=== PATIENT | female | born 1975 | race Caucasian/White ===

== ENCOUNTER 2024-10-15 09:49 | Emergency (ER) | payer BC, SELFPAY ==
[2024-10-15 10:35] VITALS: BP 151/86; PULSE 109; RESP 18; TEMP 37.4; O2SAT 98; BMI 33.3
--- NOTE | 2024-10-15 11:03 | CRLHL7_ITS ---
For Patients: As a result of the Century Cures Act, medical imaging exams and procedure reports are released immediately into your electronic medical record. You may view this report before your referring provider. If you have questions, please contact your health care provider. Indication: Fall. Technique: Sacrum and coccyx 3 view. Comparison: None. Findings: Bones: Alignment is normal. No definite acute fracture. Evaluation of the sacrum on the anteroposterior views is limited by overlying bowel gas. Joint spaces: Joint spaces are preserved. No degenerative changes. Soft tissues: Unremarkable. Impression: No evident acute fracture or dislocation. Dictated by Marbin Cancino MD @ 10/15/2024 12:08:56 PM (Electronically Signed)
--- NOTE | 2024-10-15 11:04 | ED_ITS ---
HPI - Fall General Chief Complaint: Fall/Minor Trauma Stated Complaint: fall on ice/tailbone, back, L arm/leg Time Seen by Provider: 10/15/24 10:51 History of Present Illness HPI Narrative: This 49-year-old female comes in for evaluation after a fall it occurred just prior to arrival. She slipped on ice and fell onto her bottom. She states that she is unable to sit or put any weight on her tailbone. She was able to get up and ambulate and reports a few other bumps and bruises. She did not have any loss of consciousness and did not hit her head. Her primary complaint is at her tailbone and sacrum area. Related Data Home Medications ?Medication ?Instructions ?Recorded ?Confirmed estradiol-dienogest 3 mg/2 mg-2 1 tab PO DAILY 10/15/24 10/15/24 mg/2 mg-3 mg/1 mg tablet (Natazia) Previous Rx's ?Medication ?Instructions ?Recorded albuterol sulfate 90 mcg/actuation 2 puff inhalation Q4-6H PRN 07/03/24 aerosol inhaler shortness of breath or wheezing #1 packet cyclobenzaprine 10 mg tablet 10 mg PO TID #15 tabs 10/15/24 ketorolac 10 mg tablet 10 mg PO Q8H 5 days #15 tabs 10/15/24 Allergies Allergy/AdvReac Type Severity Reaction Status Date / Time hydromorphone Allergy Mild itchy Verified 10/15/24 10:42 Review of Systems Status of ROS: Reports: 10 or more systems reviewed and unremarkable except as noted in History and below Narrative: Constitutional: No fevers, no weight gain or loss. Eyes: No discharge. No vision changes. HENT: No congestion, no sore throat, no ear pain. Cardiovascular: No chest pain, no palpitations. Respiratory: No shortness of breath, no wheezes, no cough. Gastrointestinal: No abdominal pain, no vomiting, no diarrhea. Genitourinary: No dysuria, no hematuria. Musculoskeletal: Low back pain in the area of the coccyx and sacrum. Skin: No rashes, no pruritis. Neurological: No dizziness, weakness, sensory change, speech change. Endo/Heme/Allergies: No bruising or bleeding. No polydipsia. Pysch: no suicidality, no anxiety, no insomnia. All other systems reviewed and are negative. [facility] Medical History (Updated 10/15/24 @ 12:26 by Khalif Hills MD) Viral bronchitis ?J20.8 - Acute bronchitis due to other specified organisms (ICD-10) Social History Smoking Status: Unknown if ever smoked Exam Narrative: Exam Narrative: Constitutional: Well-developed, well-nourished, no acute distress. HEENT: Normocephalic, atraumatic. Neck: Normal range of motion. Nontender. Supple. Heart: Intact distal pulses. Lungs: No chest discomfort. No wheezes, rhonchi, or rales. Abdomen: Nontender. Back: Normal range of motion. No midline tenderness through the back. Tenderness diffusely in the sacrum and coccyx area. No sign of swelling or ecchymosis. Extremities: Normal range of motion. No injury. Skin: Intact. No rash. Warm. No erythema or pallor. Neurologic: No altered sensation. No weakness. Alert and oriented. Psychiatric: No suicidality. No anxiety or depression. No insomnia. Nursing notes and vitals signs are reviewed. Const: Vital Signs, click to edit/add: Vital Signs - 24 hr 10/15/24 10:35 10/15/24 12:14 Temperature 99.4 F Pulse Rate [Pulse Oximeter] 109 H 92 Respiratory Rate 18 16 Blood Pressure [Ri ght Upper Arm] 151/86 H 141/80 H Pulse Oximetry 98 100 Oxygen Delivery Me thod Room Air Room Air Course Vital Signs Vital signs: Initial Vital Signs Temperature 99.4 F 10/15/24 10:35 Temperature Source Temporal Artery Scan 10/15/24 10:35 Pulse Rate 109 H 10/15/24 10:35 Respiratory Rate 18 10/15/24 10:35 Blood Pressure 151/86 H 10/15/24 10:35 Blood Pressure Mean 107 H 10/15/24 10:35 Blood Pressure Position Sitting 10/15/24 10:35 Pulse Oximetry 98 10/15/24 10:35 Oxygen Delivery Method Room Air 10/15/24 10:35 Vital Signs Temperature 99.4 F 10/15/24 10:35 Pulse Rate 109 H 10/15/24 10:35 Respiratory Rate 18 10/15/24 10:35 Blood Pressure 151/86 H 10/15/24 10:35 Pulse Oximetry 98 10/15/24 10:35 Oxygen Delivery Method Room Air 10/15/24 10:35 Temperature 99.4 F 10/15/24 10:35 Pulse Rate 92 10/15/24 12:14 Respiratory Rate 16 10/15/24 12:14 Blood Pressure 141/80 H 10/15/24 12:14 Pulse Oximetry 100 10/15/24 12:14 Oxygen Delivery Method Room Air 10/15/24 12:14 MDM - Fall MDM Narrative Medical decision making narrative: This patient comes in for evaluation of pain in her sacrum and tailbone after a fall that occurred just prior to arrival. She is able to get up and ambulate. She did not hit her head or have other significant injury. X-ray imaging of the sacrum and coccyx is negative according to Radiology report and by my review. The patient is okay to be discharged home. She did received prescriptions for Toradol and Flexeril. Imaging Data XR Sacrum/Coccyx: Radiologist's impression: No evident acute fracture or dislocation. Discharge Plan Discharge Clinical Impression: Tailbone injury Patient Disposition: Home, Self-Care Condition: Stable Additional Instructions: Take medication as needed and directed. Increase activity as tolerated. Follow up with MD return if worsening. Prescriptions: New cyclobenzaprine 10 mg tablet 10 mg PO TID Qty: 15 0RF ketorolac 10 mg tablet 10 mg PO Q8H 5 Days Qty: 15 0RF No Action albuterol sulfate 90 mcg/actuation HFA aerosol inhaler 2 puff inhalation Q4-6H PRN (Reason: shortness of breath or wheezing) Qty: 1 0RF Natazia 3 mg/2 mg-2 mg/ 2 mg-3 mg/1 mg tablet 1 tab PO DAILY Follow Up/Referrals: Provider,Not a Local [Primary Care Provider] - Stand Alone Forms: [employer] Info Instructions
[2024-10-15 12:14] VITALS: BP 141/80; PULSE 92; RESP 16; O2SAT 100
== END 2024-10-15 12:33 | disposition home or self-care (01) ==
PROVIDERS: Emergency Provider Emergency Medicine Emergency Medical Services
DX: S39.92XA Unspecified injury of lower back, initial encounter (principal); W00.0XXA Fall on same level due to ice and snow, initial encounter
CPT/HCPCS: 72220; 99283; 99284

== ENCOUNTER 2025-07-15 20:33 | Emergency (ER) | payer BC, SELFPAY ==
--- OUTSIDE RECORDS SUMMARY | 2025-07-15 20:35 | XMS_ITS | Clinical Summary ---
Author Organization [facility] Address [address] [place] [id number] Care Team Providers Care Childcare Director Name Role Phone Keesha Ponce MD Primary Care Prov ider Allergies Active Allergy Reactions Criticality Noted Date Comments Hydromorphone 11/03/2010 Itching unsure if could be zofran also had a same time Medications acetaminophen 325 mg tabletIndicati ons:Postoperat soni pain Take 1-2 Tablets (325-650 mg) by mouth every 4 hours if needed for Pain. Max acetaminophen dose: 4000mg in 24 hrs. 5 Active ibuprofen 200 mg tabletIndicati ons:Postoperat soni pain Take 1-3 Tablets (200-600 mg) by mouth every 6 hours if needed for Pain. 5 Active docusate (Colace) 100 mg capsuleIndicat ions:Postopera tive pain Take 1 Capsule (100 mg) by mouth once daily. 5 Active oxyCODONE 5 mg immediate release tabletIndicati ons:Postoperat soni pain Take 1 Tablet (5 mg) by mouth every 4 hours if needed for Pain. 12 Tablet 5 Active oxyCODONE 5 mg immediate release tabletIndicati ons:Postoperat soni pain Take 1 Tablet (5 mg) by mouth every 4 hours if needed for Pain. 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/17/2006 Immunizations Immunization Administration Dates Next Due COVID-19 vaccine (Moderna 100mcg/0.5mL) PF, MDV 03/05/2021,02/05/2021 Influenza A (H1N1), Inactiva braeden (Age >=3 Years) 08/21/2009 Influenza Virus, Unspecified 07/25/2018 Influenza, IIV3 (Age >=3 years) 07/27/20 16,07/13/2012,07/05/2011,2003 Influenza, IIV4 07/24/2019, 7,07/23/2015,2012 Influenza, IIV4 (=>6mos) MDV 07/15/2020,07/24/20 19,07/23/2015 Influenza,CCIIV4 PRESERV FREE 07/25/2018 Td (Age >=7 Years) 09/29/2005 Td, Preservative Free (age > = 7 Years) 09/29/2005 Tdap 11/30/2010 Family History Medical History Relation Name Comments Hypertension Father Cancer-colon Maternal Grandfather Other Maternal Grandmother kidney issues was smoker lots of issues not sure details Good Health Mother Unknown Paternal Grandfather Other Paternal Grandmother ol d age 104 Good Health Sister 1 Good Health Sister 2 Cancer-breast No Family History Relation Name Status Comments Father Alive Maternal Grandfather Maternal Grandmother Mother Alive Paternal Grandfather Paternal Grandmother Sister 1 Alive Sister 2 Alive Social History Tobacco Use Types Packs/Day Years Used Date Smoking Tobacco: Never Smokeless Tobacco: Never Tobacco Cessation:Counseling Given: Yes Alcohol Use Standard Drinks/Week Comments Yes 0 (1 standard drink = 0.6 oz pur e alcohol) ocassionally PHQ-2 Answer Date Recorded PHQ-2 TOTAL SCORE 4 11/06/2024 Social Connections Answer Date Recorded Do you often feel lonely or isolated from those around you? 0 10/03/2024 Financial Resource Strain Answer Date R ecorded Difficulty of Paying Living Expenses 3 10/03/2024 Difficulty of Paying Living Expenses Not on file 10/03/2024 Food Insecurity Answer Date Recorded Do you worry your food will run out before you are able to buy more? 1 10/03/2024 Transportation Needs Answer Date Record ed Does lack of transportation keep you from medica l appointments? 1 10/03/2024 Does lack of transportation keep you from work, meetings or getting things that you need? 1 10/03/2024 Housing Stability Answer Date Recorded What is your housing situation today? 1 10/03/2024 Utilities Answer Date Recorded Do you have trouble paying f or utilities (for example, heat, electricity, water, phone)? 1 10/03/2024 Comments No Sex and Gender Information Value Date Recorded Sex Assigned at Not on file Legal Sex Female 5:26 AM [employer]RNAMENTAL MET[employer] Gender Identity Not on file Sexual Orientation Not on file Obstetrics History Para Term AB IAB SAB Ectopic Multiple Livin g Live Births 2 2 2 2 2 Date Outcome GA Total Labor Labor//3rd Weight Sex Type Anes PTL Trena A1 A5 Name Clin 2000 Term Vag Living 2003 Term Vag Living Last Filed Vital Signs Vital Sign Reading Time Taken Comments Blood Pressure 128/90 03/19/2025 11:30 AM CDT Pulse 80 03/19/2025 11:30 AM CDT Temperature 36.3 C (97.3 F) 01/28/2025 11:05 AM CDT Respiratory Rate 16 01/28/2025 12:00 PM CDT Oxygen Saturation 98% 01/28/2025 12:00 PM CDT Inhaled Oxygen Concentration - - Weight 87.5 kg (193 lb) 03/19/2025 11:30 AM CDT Height 165.1 cm (5' 5) 01/28/2025 6:05 AM CDT Body Mass Index 32.12 01/28/2025 6:05 AM CDT Plan of Treatment Health Maintenance Due Date Last Done Comments HIV for age 15-65 01/06/1991 Hepatitis C screening for age 18-79 01/06/1994 Hepatitis B series for 19+ (1 of 3 - 19+ 3-dose series) 01/06/1995 Tetanus booster 11/30/2020 11/30/2010, 09/16, 09/29/2005 Colonoscopy through age 75 11/21/2022 11/21/2012 COVID-19 vaccine series ( - 2024- season) 2025 03/05/2021, 02/05/2021 Influenza Vaccine (#1) 2025 0, 07/24/2019, 07/24/2019, Additional history exists Depression screening for age 12+ 11/12/2025 11/12/2024, 11/10/2024, 11/10/2024, Additional history exists BMI (ht and wt on same day) for age 18+ 01/16/2026 01/16/2025, 11/06/2024, 03/17/2021, Additional history exists Mammogram for age 45-75 03/28/2026 03/28/20 25, 02/28/2024, 02/23/2021 Lipids for age 45-75 01/16/2030 01/16/2025, 11/28/19 07 RSV vaccine for adults or (1 - 1-dose 75+ series) 01/06/2051 Pap test for age 21-65 Discontinued , 09/09/2015, 11/30/2010, Additional history exists Pneumococcal series for age 6-49 Aged Out No longer eligible based on patient's age to complete this topic Procedures Procedure Name Priority Date/Time Associated Diagnosis Comments XR MAMMO FIORELLA BILAT SCREEN Routine 03/28/2025 7:26 AM CDT Encounter for screening mammogram for malignant neoplasm of breast LIPID PANEL W REFLEX MEASURED LDL Routine 01/16/2025 7:47 AM CDT Screening for lipoid disorders INTEGRATION MANAGER THIN PREP PAP SCREEN IMAGED Today 03/20/2021 11:16 AM CDT from Last 3 Months or Most Recently Relevant to Health Maintenance Results * XR MAMMO FIORELLA BILAT SCREEN (03/28/2025 7:26 AM CDT) Anatomical Region Laterality Modality BREASTS, Breast Left, Breast Right Bilateral Mammography Impressions 03/28/2025 1:48 PM CDT There is no radiographic evidence for malignancy. Recommend annual mammograms. MAMMOGRAM ASSESSMENT: ACR 1 Negative PATIENTS: You will also receive a letter with your examination results in an easy to read format. If you have questions about your results, please contact your referring provider. Narrative 03/28/2025 1:48 PM CDT For Patients: As a result of the Century Cures Act, medical imaging exams and procedure reports are released immediately into your electronic medical record. You may view this report before your referring provider. If you have questions, please contact your health care provider. XR MAMMO FIORELLA BILAT SCREEN [[id number]] CLINICAL HISTORY: This is an asymptomatic 50 y.o. patient. INDICATION FOR EXAM: Mammogram Screening. TECHNIQUE: CC and MLO views were obtained. This study was evaluated with the assistance of Computer-Aided Detection. Breast Tomosynthesis was used in interpretation. COMPARISON FILM: Yes 02/28/24 [facility] 02/23/21 [facility] FINDINGS: The breasts are heterogeneously dense, which may obscure small masses. There are no dominant masses, suspicious micro calcifications or areas of architectural distortion. us Keesha Ponce MD MAMMO Fi nal Result * (ABNORMAL) LIPID PANEL W REFLEX MEASURED LDL (01/16/2025 7:47 AM CDT) CHOLESTEROL, TOTAL 189 <200 mg/dL [facility] HDL CHOLESTEROL 52 > OR = 50 mg/dL [facility] TRIGLYCERIDES 127 <150 mg/dL [facility] LDL-CHOLESTEROL 113(H) mg/dL (calc) [facility] Comment: Reference range: <100 Desirable range <100 mg/dL for primary prevention; <70 mg/dL for patients with CHD or diabetic patients with > or = 2 CHD risk factors. LDL-C is now calculated using the Christiano-Jacky calculation, which is a validated novel method providing better accuracy than the Friedewald equation in the estimation of LDL-C. Christiano BONILLA et al. AVE. 2013;310(19): 4609-1263 (http://education.[employer].IRL Gaming/faq/XAV218) CHOL/HDLC RATIO 3.6 <5.0 (calc) [facility] NON HDL CHOLESTEROL 137(H) <130 mg/dL (calc) [facility] Comment: For patients with diabetes plus 1 major ASCVD risk factor, treating to a non-HDL-C goal of <100 mg/dL (LDL-C of <70 mg/dL) is considered a therapeutic option. Blood BLOOD SPECIMEN / Unknown 01/16/2025 7:47 AM CDT 01/16/2025 7:47 AM CDT Keesha Ponce MD CHEMISTRY Fi nal Result [employer] [facility] [address] [place] [address], [facility] [address] [place] [address] * INTEGRATION MANAGER THIN PREP PAP SCREEN IMAGED (03/20/2021 11:16 AM CDT) Case Report Gynecologic Cytology Report Case: [id number] Authorizing Provider: Bridger Suarez MD Collected: 03/20/2021 1116 Ordering Location: [facility] Received: 03/20/2021 1327 First Screen: Baccam, Minie Rescreen: Valery Driver Specimen: INTEGRATION MANAGER ThinPrep Vial Screening, Cervix, pap smear 04/02/2021 12:22 PM CDT [facility] INTERPRETATION/ RESULT NEGATIVE FOR INTRAEPITHELIAL LESION OR MALIGNANCY (NIL) (none) 04/02/2021 12:22 PM CDT [facility] at 1222 CDT SPECIMEN ADEQUACY Satisfactory for evaluation Endocervical component present 04/02/2021 12:22 PM CDT [facility] HPV REQUEST HPV if ASCUS 04/02/2021 12:22 PM CDT [facility] Last Pap Date 09/09/15 04/02/2021 12:22 PM CDT [facility] Last Pap Result NIL 12:22 PM CDT [facility] Mineral Bx Done Today No 04/02/2021 12:22 PM CDT [facility] Additional Information None given 04/02/2021 12:22 PM CDT [facility] Comment: Cytology is screened at [facility] - [address], [place] [address] and [facility] - [address], [place] [address] and [facility] - [address] [place] [address] Interpreted at [facility] - [address], [place] [address] Automated Review Successful 04/02/2021 12:[address] [facility] Comment:Specimen processed s uccessfully by automated early childhood aide classroom device, ThinPrep Imaging System, [employer] Note The pap test is a screening technique, not a diagnostic procedure. It is used primarily to screen for squamous cancers and precursor lesions. Published studies have shown that it is subject to both false negative and false positive results. The pap test should not be used as the sole means to diagnose or exclude pre-malignant and malignant lesions. 04/02/2021 12:[address] [facility] Tissue SPECIMEN FROM UTERINE CERVIX / Unknown 03/20/2021 11:16 AM CDT 03/20/2021 1:27 PM CDT us Bridger Suarez MD PATHOLOGY/CYTOLOGY Final Resul t [facility] [address] [place] [address], [place] from Last 3 Months or Most Recently Relevant to Health Maintenance Insurance [facility] Advance Directives * Full Code (Latest Code Status on File) Date Activated Date Inactivated Comments 01/28/2025 5:42 AM 01/28/2025 3:06 PM Question Answer Comments Code Status Discussion: Reviewed Preferences * Full Code Date Activated Date Inactivated Comments 03/20/2021 9:54 AM 03/20/2021 3:04 PM Question Answer Comments Code Status Discussion: Not Discussed Care Teams Childcare Director Relationship Specialty Start Date End Date Keesha Ponce MD [address] [place] [address] PCP - General Family Practice 02/28/24
[2025-07-15 20:36] VITALS: BP 151/94; PULSE 104; RESP 16; TEMP 37; O2SAT 98; BMI 33.5
--- NOTE | 2025-07-15 20:46 | ED_ITS ---
HPI - Abdominal Pain General Time Seen by Provider: 20:46 Date Seen: 07/15/25 Chief Complaint: Abdominal Pain Stated Complaint: pain in back and side Time Seen by Provider: 07/15/25 20:38 Source: patient and RN notes reviewed Mode of arrival: ambulatory Limitations: no limitations History of Present Illness HPI narrative: This 50yo female is coming in to the ED with left upper abdominal pain that radiates into her back/flank area. Symptoms starting last week, did end up in [facility] on TuesdayJuly [facility]. She did not have blood in her urine and she was told that it could not be a kidney stone with that, was sent home. She has not had any fevers. Pain was more dull but is now intensifying and worsening. She has nausea without vomiting. No change in urination or urinary irritative symptoms. Has has a history of kidney stones and this feels like one. MD elicited complaint: flank pain Related Data Home Medications ?Medication ?Instructions ?Recorded ?Confirmed No Known Home Medications 07/15/2506/18 Allergies Allergy/AdvReac Type Severity Reaction Status Date / Time hydromorphone Allergy Mild itchy Verified 07/15/25 20:41 Review of Systems Narrative As per HPI. PFSH PFS Medical History Viral bronchitis ?J20.8 - Acute bronchitis due to other specified organisms (ICD-10) Social History Smoking Status: Never smoker How often do you have a drink containing alcohol: never AUDIT-C Alcohol total score: 0 Non-prescribed substance use: denies use Exam Const: Vital Signs, click to edit/add: Vital Signs - 24 hr 07/15/25 20:36 Temperature 98.6 F Pulse Rate [Pulse Oximeter] 104 H Respiratory Rate 16 Blood Pressure [Ri ght Upper Arm] 151/94 H Pulse Oximetry 98 This 50-year-old female is alert, interactive, no apparent distress, sitting up in the bed in exam room 3, does look mildly uncomfortable at times. Sclera clear, conjugate gaze, symmetrical facial function. Speech is normal. Lungs are clear, good air entry come wheezing or crackles, no tachypnea. CV regular rate and rhythm, no murmur, normal S1-S2, no S3-S4. Abdomen is soft, nontender, nondistended, no organomegaly, rebound or guarding, no masses. She feels the pain in the left upper stomach but deeper. It radiates into her back from there. Documenting provider has reviewed patient's vital signs: yes Course Course ED Course: Her symptoms certainly sounds suspicious for potentially large obstructing kidney stone. She does agreed to proceed with CT noncontrast of her abdomen and pelvis. She understands there could be a chance that we might want to repeat with IV contrast should this prove to be something different. Will do full complement of labs including liver tests and lipase for atypical presentation abdominal etiologies. We will initiate some IV fluids, start with IV Toradol and give her some IV Zofran for nausea control. She had already provided a urinalysis during triage which is running. Reevaluation(s) Time of Reevaluation #1: 21:56 Reevaluation #1: Patient's pain has improved. She is aware that we are waiting the CT to be read. Have reviewed normal CBC, normal comprehensive metabolic panel outside of elevated glucose but not in single value range of diagnosis seen any diabetes. Will await the CT report. She does not believe that she has never seen Urology, does not think she has ever had to have any interventions for kidney stones. Time of Reevaluation #2: 22:56 Reevaluation #2: Have reviewed patient CT. We did discuss the fatty liver, punctate stone within the kidney, doubt this is causing her pain. She is having no respiratory symptoms no cough or cold symptoms. Pain is not going into the chest at all. She feels it in the left upper abdomen hand will wrap around into her back. She has not seen a rash, I do not see a rash. We did discuss prodromal pain of shingles. She will watch for rash. She really does not feel that this is musculoskeletal, is not changing with positions. We did discuss the possibility of something with the stomach itself like early ulcer disease or gastritis. She really is noting no change with eating. Noncontrast CT showing no etiology in her labs are reassuring outside of the glucose. We did review getting a fasting glucose done at some point just to ensure no concern for pre diabetes or early diabetes. We will give her some oral Toradol to try at home, the IV did seem to help here. Vital Signs Vital signs: Initial Vital Signs Temperature 98.6 F 07/15/25 20:36 Temperature Source Temporal Artery Scan 07/15/25 20:36 Pulse Rate 104 H 07/15/25 20:36 Respiratory Rate 16 07/15/25 20:36 Blood Pressure 151/94 H 07/15/25 20:36 Blood Pressure Mean 113 H 07/15/25 20:36 Pulse Oximetry 98 07/15/25 20:36 Vital Signs Temperature 98.6 F 07/15/25 20:36 Pulse Rate 104 H 07/15/25 20:36 Respiratory Rate 16 07/15/25 20:36 Blood Pressure 151/94 H 07/15/25 20:36 Pulse Oximetry 98 07/15/25 20:36 Temperature 98.6 F 07/15/25 20:36 Pulse Rate 104 H 07/15/25 20:36 Respiratory Rate 16 07/15/25 20:36 Blood Pressure 151/94 H 07/15/25 20:36 Pulse Oximetry 98 07/15/25 20:36 Medications Administered Medications: Discontinued Medications Generic Name Dose Route Start Last Admin Trade Name Freq PRN Reason Stop Dose Admin Sodium Chloride 1,000 mls @ 500 mls/hr 07/15/25 20:54 07/15/25 21:20 0.9 % Sodium Chloride 1000 Ml IV 07/15/25 22:53 500 mls/hr .Q2H JOSEPH Administration Ketorolac Tromethamine 15 mg 07/15/25 20:54 07/15/25 21:16 Ketorolac 15 Mg/Ml Inj IVP 07/15/25 20:55 15 mg ONCE ONE Administration Ondansetron HCl 4 mg 07/15/25 20:54 07/15/25 21:16 Ondansetron 2 Mg/Ml Inj IVP 07/15/25 20:55 4 mg ONCE ONE Administration MDM - Abdominal Pain Lab Data Attestation: I reviewed the patient's lab results. Labs: Lab Results 07/15/25 07/15/25 Range/Units 20:45 21:10 WBC 10.15 (4.50-11.00) K/uL RBC 4.77 (4.00-5.20) m/uL Hgb 13.8 (12.0-16.0) gm/dL Hct 40.9 (33.0-51.0) % MCV 86 (80-100) fL MCH 29 (26-34) pg MCHC 34 (32-36) gm/dL RDW Coeff of Dhaval 13.0 (11.5-15.5) % Plt Count 348 (140-440) K/uL Neut % (Auto) 60.4 (42.0-72.0) % Lymph % (Auto) 30.7 (20-44) % [place] % (Auto) 5.9 (0.0-11.0) % Eos % (Auto) 2.4 (0.0-7.0) % Baso % (Auto) 0.2 (0.0-3.0) % Neut # (Auto) 6.13 (1.7-7.0) K/uL Lymph # (Auto) 3.12 H (0.90-2.90) K/uL [place] # (Auto) 0.60 (0.00-0.90) K/UL Eos # (Auto) 0.24 (0.00-0.50) K/uL Baso # (Auto) 0.02 (0.00-0.30) K/uL Abs Immat Gran (auto) 0.04 (0.00-0.30) K/uL Imm/Tot Granulo (auto) 0.4 % Sodium 135 (135-149) mmol/L Potassium 3.8 (3.6-5.1) mmol/L Chloride 102 (96-114) mmol/L Carbon Dioxide 26 (20-32) mmol/L Anion Gap 7 (7-15) mEq/L BUN 12 (5-24) mg/dL Creatinine 0.7 (0.5-1.5) mg/dL Estimated Creat Clear 87.48 Estimated GFR 106 ml/min Glucose 176 H (60-115) mg/dL Lactate 0.9 (0.5-1.9) mmol/L Calcium 9.2 (8.4-10.6) mg/dL Total Bilirubin 1.1 (0.1-1.5) mg/dL Direct Bilirubin 0.3 (0.0-0.5) mg/dL AST 28 (12-35) U/L ALT 33 (4-35) U/L Alkaline Phosphatase 90 (40-150) U/L C-Reactive Protein 0.9 (0.5-1.0) mg/dL Total Protein 7.2 (6.0-8.3) g/dL Albumin 4.3 (3.3-5.0) g/dL Lipase 76 (23-300) U/L Urine Color Yellow (Yellow) Urine Appearance Clear (Clear) Urine pH 7.0 (5.0-8.5) Ur Specific [place] 1.020 (1.000-1.030) Urine Protein Negative (Negative) Urine Glucose (UA) Negative (Negative) Urine Ketones Negative (Negative) Urine Blood Trace-intact A (Negative) Urine Nitrite Negative (Negative) Urine Bilirubin Negative (Negative) Urine Urobilinogen 1.0 (0.2-1.0) Ur Leukocyte Esterase Negative (Negative) Urine RBC 0-2 (0-2) Urine WBC 0-2 (0-5) Ur Squamous Epith Cells Few (None-Few) Urine Bacteria Few A (None) Imaging Data CT scan - abdomen: Attestation: I have reviewed the pertinent imaging results. Radiologist's impression: Patient: LEEANN ARREAGA Facility:?[facility] Patient ID:?[id number] Site Patient ID:?[id number]. Site :?[id number] Study:?CT-Abdomen/Pelvis WITHOUT-07/15/2025 9:35:22 PM Ordering Physician:Nallely Guerrero Final Report: Indication: Left flank pain, history of kidney stones Technique: Noncontrast CT through the abdomen and pelvis with multiplanar reformats. Comparison: CT abdomen pelvis performed 09/06/2017 Findings: Lower chest: Possible nodules in the left lower lobe, partially out of field of view of this study. Hepatobiliary: Hepatic steatosis. Cholecystectomy. Spleen: Unremarkable. Pancreas: No acute abnormality appreciated. Adrenal glands: No acute abnormality appreciated. Kidneys: Punctate nonobstructing left renal stone suspected. No hydronephrosis. Bowel: Scattered diverticula. No obstruction. No focal perienteric or pericolonic stranding is appreciated. Vascular: Poorly evaluated on this noncontrast examination. Lymph nodes: No gross lymphadenopathy. Peritoneum: No free air. No free fluid. : Hysterectomy. Small simple left ovarian cyst, likely functional. Soft tissues: No acute abnormality appreciated. Bones: No acute fracture. No lytic or blastic lesion. Impression: 1. Punctate nonobstructing left renal stone. No other acute findings seen to a ccount for patient`s reported symptoms. 2. Hepatic steatosis. 3. Diverticulosis. Please note that all CT scans at this facility use dose modulation, iterative reconstruction, and/or weight-based dosing when appropriate to reduce radiation dose to as low as reasonably achievable. Dictated by Sunny Mitchell MD @ 07/15/2025 10:43:17 PM (Electronic Signature) Discharge Plan Discharge Clinical Impression: Abdominal pain, left upper quadrant Patient Disposition: Home, Self-Care Condition: Stable Instructions: Acute Abdominal Pain (ED) Additional Instructions: The cause of your abdominal pain is indeterminate at this time. You can try the Toradol 10 mg every 6 hours as needed, not to exceed 5 days, 20 tablets provided from behaview. Can use Tylenol per bottle directions if needed as well. Once the Toradol as done, can try ibuprofen. Need you to follow up in clinic within the next couple days. Watch for rash as we discussed and return if you do develop this. If pain is becoming more severe, develops fever or vomiting, have changes in your symptoms that develop, please return for re-evaluation. Remember to talk to your primary provider about screening for diabetes, glucose was 176 here tonight. Activity Level: Activity as Tolerated Prescriptions: No Action No Known Home Medications Follow Up/Referrals: Provider,Not a Local [Non-Staff, Family Practice] Stand Alone Forms: Ayeah Gamesth Info Instructions
--- NOTE | 2025-07-15 20:53 | CRLHL7_ITS ---
For Patients: As a result of the Century Cures Act, medical imaging exams and procedure reports are released immediately into your electronic medical record. You may view this report before your referring provider. If you have questions, please contact your health care provider. Indication: Left flank pain, history of kidney stones Technique: Noncontrast CT through the abdomen and pelvis with multiplanar reformats. Comparison: CT abdomen pelvis performed 09/06/2017 Findings: Lower chest: Possible nodules in the left lower lobe, partially out of field of view of this study. Hepatobiliary: Hepatic steatosis. Cholecystectomy. Spleen: Unremarkable. Pancreas: No acute abnormality appreciated. Adrenal glands: No acute abnormality appreciated. Kidneys: Punctate nonobstructing left renal stone suspected. No hydronephrosis. Bowel: Scattered diverticula. No obstruction. No focal perienteric or pericolonic stranding is appreciated. Vascular: Poorly evaluated on this noncontrast examination. Lymph nodes: No gross lymphadenopathy. Peritoneum: No free air. No free fluid. : Hysterectomy. Small simple left ovarian cyst, likely functional. Soft tissues: No acute abnormality appreciated. Bones: No acute fracture. No lytic or blastic lesion. Impression: 1. Punctate nonobstructing left renal stone. No other acute findings seen to account for patient`s reported symptoms. 2. Hepatic steatosis. 3. Diverticulosis. Please note that all CT scans at this facility use dose modulation, iterative reconstruction, and/or weight-based dosing when appropriate to reduce radiation dose to as low as reasonably achievable. Dictated by Sunny Mitchell MD @ 07/15/2025 10:43:17 PM (Electronically Signed)
[2025-07-15 21:13] LABS: Lactate* 0.9 mmol/L (0.5-1.9)
[2025-07-15] MEDS: ONDANSETRON 2 MG/ML inj 4 MG IVP (21:16)
[2025-07-15 21:17] LABS: Hematocrit* 40.9 % (33.0-51.0); Hemoglobin* 13.8 gm/dL (12.0-16.0); Immature Granulocytes Abs Auto 0.04 K/uL (0.00-0.30); Immature Granulocytes Pct Auto 0.4 %; Lymphocytes Absolute Auto 3.12 K/uL (0.90-2.90); Mean Corpuscular HGB Conc 34 gm/dL (32-36); Mean Corpuscular Hemoglobin 29 pg (26-34); Mean Corpuscular Volume 86 fL (80-100); RDW Coefficient of Variation % 13.0 % (11.5-15.5); Red Blood Count* 4.77 m/uL (4.00-5.20); White Blood Count* 10.15 K/uL (4.50-11.00)
[2025-07-15 21:18] LABS: Slide Review Reflex No
[2025-07-15 21:31] LABS: Appearance Urine Clear (Clear)
[2025-07-15 21:36] LABS: Albumin* 4.3 g/dL (3.3-5.0); Chloride* 102 mmol/L (96-114)
[2025-07-15 21:37] LABS: Potassium* 3.8 mmol/L (3.6-5.1); Sodium* 135 mmol/L (135-149)
[2025-07-15 21:39] LABS: Blood Urea Nitrogen* 12 mg/dL (5-24); Creatinine* 0.7 mg/dL (0.5-1.5); Est. Creatinine Clearance* 87.48; Estimated Glomerular Filt Rate 106 ml/min
[2025-07-15 21:40] LABS: Alanine Aminotransferase* 33 U/L (4-35); Alkaline Phosphatase* 90 U/L (40-150); Anion Gap 7 mEq/L (7-15); Aspartate Amino Transferase* 28 U/L (12-35); Bilirubin Direct* 0.3 mg/dL (0.0-0.5); Bilirubin Total* 1.1 mg/dL (0.1-1.5); Calcium* 9.2 mg/dL (8.4-10.6); Carbon Dioxide* 26 mmol/L (20-32); Glucose* 176 mg/dL (60-115); Total Protein* 7.2 g/dL (6.0-8.3)
[2025-07-15 23:10] VITALS: BP 142/76; PULSE 80; RESP 16; O2SAT 95
== END 2025-07-15 23:23 | disposition home or self-care (01) ==
PROVIDERS: Emergency Provider Family Medicine; PCP Family Medicine
DX: R10.11 Right upper quadrant pain (principal)
CPT/HCPCS: 36415; 74176; 80048; 80076; 81001; 83605; 83690; 85025; 86140; 87086; 96374; 96375; 99284; J1885; J2405; J7030